=== PATIENT | male | born 1985 | race Hispanic/Latino ===

== ENCOUNTER 2016-08-26 13:39 | Emergency (ER) | payer SELFPAY ==
[~2016-08-26] VITALS: Ht 177.8 cm; Wt 83.0 kg
[2016-08-26 16:43] VITALS: BP 124/79
== END 2016-08-26 16:44 | disposition home or self-care (01) ==
LOC: EME 13:39
PROC: 0HQ1XZZ Repair Face Skin, External Approach (ICD-10-PCS; principal; 2016-08-26)
DX: S01.111A Laceration without foreign body of right eyelid and periocular area, initial encounter (principal); S01.21XA Laceration without foreign body of nose, initial encounter; V09.1XXA Pedestrian injured in unspecified nontraffic accident, initial encounter; Y93.23 Activity, snow (alpine) (downhill) skiing, snowboarding, sledding, tobogganing and snow tubing; Y92.838 Other recreation area as the place of occurrence of the external cause
CPT/HCPCS: 99281; 99284